=== PATIENT | male | born 1990 | race American Indian/Alaskan Native ===

== ENCOUNTER 2017-04-11 20:15 | Emergency (ER) | payer OTHER ==
--- NOTE | 2017-04-11 21:25 | Emergency Department Report ---
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 denies: fever, chills, myalgias, diaphoresis, rhinorrhea, stiff neck , shortness of breath, abdominal pain, nausea, vomiting, diarrhea, dysuria, rash , confusion, right sweats, weight loss, epistaxis, hoarseness, ear pain Treatments Prior to Arrival: none - Related Data Previous Rx's Medication Instructions Recorded Last Taken Type Amoxicillin [Trimox CAP] 500 mg PO BID #20 capsule 04/11/17 Unknown Rx methylPREDNISolone [Medrol] 4 mg PO DAILY #1 tab.ds.pk 04/11/17 Unknown Rx Allergies Allergy/AdvReac Type Severity Reaction Status Date / Time No Known Allergies Allergy Unverified 04/11/17 20:26 ED Review of Systems ROS: Stated complaint: CHEST PAIN/DAVE Other details as noted in HPI Comment: Unobtainable due to pts medical conditions Constitutional: no symptoms reported, see HPI. denies: chills, diaphoresis, fever, malaise Eyes: as per HPI. denies: eye pain, eye discharge, vision change ENT: as per HPI, throat pain, congestion (NASAL). denies: ear pain, dental pain , hearing loss, epistaxis Respiratory: no symptoms reported, see HPI, cough (WHEN LIES DOWN W TICKLE IN THROAT). denies: orthopnea, shortness of breath, SOB with exertion, SOB at rest , stridor Cardiovascular: as per HPI, chest pain (W COUGH). denies: palpitations, dyspnea on exertion, orthopnea Endocrine: no symptoms reported, see HPI. denies: excessive sweating, flushing , intolerance to cold, intolerance to heat Gastrointestinal: as per HPI. denies: abdominal pain, nausea, vomiting Genitourinary: as per HPI. denies: urgency, dysuria Musculoskeletal: as per HPI. denies: back pain Skin: as per HPI. denies: rash, lesions Neurological: as per HPI, headache (SINUS). denies: weakness, numbness, paresthesias, confusion, abnormal gait, vertigo (DIZZY AT WORK AND THEY MADE HIM COME IN TO ER) Psychiatric: as per HPI. denies: anxiety, depression Hematological/Lymphatic: as per HPI. denies: easy bleeding ED Past Medical Hx - Past Medical History Previous Medical History?: Yes Additional medical history: "kinked ureter" - Surgical History Past Surgical History?: No - Family History Family history: no significant - Social History Smoking Status: Current Every Day Smoker Substance Use Type: Alcohol (rare), Other (denies drugs) - Medications Home Medications: Home Medications Medication Instructions Recorded Confirmed Last Taken Type Amoxicillin [Trimox CAP] 500 mg PO BID #20 capsule 04/11/17 Unknown Rx methylPREDNISolone [Medrol] 4 mg PO DAILY #1 tab.ds.pk 04/11/17 Unknown Rx ED Physical Exam - General Limitations: No Limitations General appearance: alert, in no apparent distress - Head Head exam: Present: atraumatic - Eye Eye exam: Present: PERRL - ENT ENT exam: Present: mucous membranes moist, normal external ear exam. Absent: TM 's normal bilaterally (red b) - Expanded ENT Exam Expanded TM/Canal exam: Erythema: Right TM, Left TM Mouth exam: Absent: drooling, trismus, muffled voice, tongue normal, tongue elevation, laceration Throat exam: Positive: tonsillar erythema, other (max sinus tenderness) - Neck Neck exam: Present: normal inspection, full ROM. Absent: tenderness, meningismus, lymphadenopathy, thyromegaly - Respiratory Respiratory exam: Present: normal lung sounds bilaterally, respiratory distress. Absent: wheezes, rales, rhonchi, stridor, chest wall tenderness, accessory muscle use, decreased breath sounds, prolonged expiratory - Cardiovascular Cardiovascular Exam: Present: regular rate, normal rhythm, normal heart sounds - GI/Abdominal GI/Abdominal exam: Present: soft - Rectal Rectal exam: Present: deferred - Extremities Exam Extremities exam: Present: normal inspection, full ROM. Absent: tenderness, normal capillary refill, pedal edema, joint swelling - Back Exam Back exam: Present: normal inspection, full ROM. Absent: tenderness, CVA tenderness (L) - Neurological Exam Neurological exam: Present: alert, oriented X3, CN II-XII intact, normal gait, reflexes normal - Psychiatric Psychiatric exam: Present: normal affect, normal mood - Skin Skin exam: Present: warm, dry, intact, normal color. Absent: rash ED Course Vital Signs 04/11/17 20:26 Temperature 98.3 F Pulse Rate 80 Respiratory 18 Rate Blood Pressure 104/54 Blood Pressure 104/54 [Left] O2 Sat by Pulse 97 Oximetry ED Medical Decision Making - EKG Data EKG shows normal: sinus rhythm - EKG Data Interpretation: no acute changes - Radiology Data Radiology results: report reviewed, image reviewed - Medical Decision Making non ill appearing cough/sinus mold exposure - Differential Diagnosis urti v allergy Critical care attestation.: If time is entered above; I have spent that time in minutes in the direct care of this critically ill patient, excluding procedure time. ED Disposition Clinical Impression: Sinusitis, Allergic rhinitis, Cough Disposition: - TO HOME OR SELFCARE Is pt being admited?: No Does the pt Need Aspirin: No Condition: Stable Instructions: Sinusitis (ED), Allergic Rhinitis (ED) Additional Instructions: rest fluids motrin or tylenol for pain or fever flonase over the counter twice per day for 5 days med as ordered here today follow up with pcp Prescriptions: Amoxicillin [Trimox CAP] 500 mg PO BID #20 capsule methylPREDNISolone [Medrol] 4 mg PO DAILY #1 tab.ds.pk Referrals: BEATRIZ ESCOBAR MD [Staff Physician] - 3-5 Days Time of Disposition: 21:45
--- NOTE | 2017-04-11 21:34 | XRay Report ---
FINAL REPORT EXAM: XR CHEST 1V AP HISTORY: chest pain COMPARISON: None available. FINDINGS: Frontal view(s) of the chest obtained. Cardiac silhouette within normal limits. No gross consolidation or effusion. No pneumothorax. IMPRESSION: No grossly acute findings.
[2017-04-11 22:33] VITALS: BP 130/67
== END 2017-04-11 22:32 | disposition home or self-care (01) ==
LOC: ED 20:15
DX: J32.9 Chronic sinusitis, unspecified (principal); J30.9 Allergic rhinitis, unspecified; F17.210 Nicotine dependence, cigarettes, uncomplicated
CPT/HCPCS: 71010; 93005; 93010; 99283

== ENCOUNTER 2017-06-03 11:02 | Emergency (ER) | payer OTHER ==
[2017-06-03 11:28] VITALS: BP 99/53
== END 2017-06-03 15:24 | disposition left against medical advice (07) ==
LOC: ED 11:02
DX: Z53.21 Procedure and treatment not carried out due to patient leaving prior to being seen by health care provider (principal)

== ENCOUNTER 2018-05-06 21:15 | Emergency (ER) | payer OTHER ==
[2018-05-06 22:01] LABS: Eosinophils # (Auto) 0.1 K/mm3 (0.0-0.4); Eosinophils % (Auto) 2.5 % (0.0-4.3); Hemoglobin 12.9 gm/dl (11.8-15.2); Lymphocytes % (Auto) 46.1 % (13.4-35.0); Mean Corpuscular HGB Conc 35 % (32-34); Mean Corpuscular Hemoglobin 31 pg (28-32); Mean Corpuscular Volume 89 fl (84-94); Monocytes # (Auto) 0.6 K/mm3 (0.0-0.8); Monocytes % (Auto) 14.3 % (0.0-7.3); Platelet Count 153 K/mm3 (140-440); Red Blood Count 4.15 M/mm3 (3.65-5.03); Red Cell Distribution Width 13.4 % (13.2-15.2)
[2018-05-06 22:24] LABS: BUN/Creatinine Ratio 13; Blood Urea Nitrogen 15 mg/dL (9-20); Calcium 9.1 mg/dL (8.4-10.2); Hemolysis Index 8
[2018-05-06 23:16] LABS: Bilirubin,Urine NEG (Negative); Blood,Urine NEG (Negative); Color,Urine Yellow (Yellow)
[2018-05-07] MEDS ORDERED: ZOFRAN ODT PO ONE (06:18)
[2018-05-07] MEDS ORDERED: TORADOL IM ONE (06:18)
[2018-05-07] MEDS ORDERED: NORCO 5/325 PO ONE (06:18)
--- NOTE | 2018-05-07 06:45 | Emergency Department Report ---
ED Abdominal Pain HPI - General Chief Complaint: Abdominal Pain Stated Complaint: KIDNEY STONE SYMPTOMS Time Seen by Provider: 05/07/18 06:08 Source: patient Mode of arrival: Ambulatory Limitations: No Limitations - History of Present Illness Initial Comments: 27-year-old male with a past medical history of a "kinked ureter" presents to the hospital with right flank pain for the past 5 days. Pain was initially intermittent but now more constant and severe. Pain today was rated 10/10 in intensity and described as feeling something was going to burst. Positive intermittent nausea and vomiting without fever, hematuria, or diarrhea. Patient does not have a primary care doctor or urologist - Related Data Previous Rx's Medication Instructions Recorded Last Taken Type Amoxicillin [Trimox CAP] 500 mg PO BID #20 capsule 04/11/17 Unknown Rx methylPREDNISolone [Medrol] 4 mg PO DAILY #1 tab.ds.pk 04/11/17 Unknown Rx Ibuprofen [Motrin] 600 mg PO Q8H PRN #30 tablet 05/07/18 Unknown Rx Ondansetron [Zofran Odt] 4 mg PO Q8HR PRN #20 tab.rapdis 05/07/18 Unknown Rx traMADol [Ultram 50 MG tab] 50 mg PO Q6HR PRN #20 tablet 05/07/18 Unknown Rx Allergies Allergy/AdvReac Type Severity Reaction Status Date / Time No Known Allergies Allergy Unverified 04/11/17 20:26 ED Review of Systems ROS: Stated complaint: KIDNEY STONE SYMPTOMS Other details as noted in HPI Comment: All other systems reviewed and negative ED Past Medical Hx - Past Medical History Previous Medical History?: Yes Additional medical history: "kinked ureter" - Surgical History Past Surgical History?: No - Social History Smoking Status: Current Every Day Smoker Substance Use Type: Alcohol - Medications Home Medications: Home Medications Medication Instructions Recorded Confirmed Last Taken Type Amoxicillin [Trimox CAP] 500 mg PO BID #20 capsule 04/11/17 Unknown Rx methylPREDNISolone [Medrol] 4 mg PO DAILY #1 tab.ds.pk 04/11/17 Unknown Rx Ibuprofen [Motrin] 600 mg PO Q8H PRN #30 tablet 05/07/18 Unknown Rx Ondansetron [Zofran Odt] 4 mg PO Q8HR PRN #20 tab.rapdis 05/07/18 Unknown Rx traMADol [Ultram 50 MG tab] 50 mg PO Q6HR PRN #20 tablet 05/07/18 Unknown Rx ED Physical Exam - General Limitations: No Limitations - Other Other exam information: General: No limitations, patient is alert in no acute distress Head exam: Atraumatic, normocephalic Eyes exam: Normal appearance ENT: Moist mucous membrane Neck exam: Normal inspection, full range of motion, no meningismus nontender Respiratory exam: Clear to auscultation bilateral, no wheezes, rales, crackles Cardiovascular: Normal rate and rhythm, normal heart sounds Abdomen: Soft, nondistended, right flank tenderness, with normal bowel sounds, no rebound, or guarding Extremity: Full range of motion normal inspection no deformity Back: Normal Inspection, full range of motion Neurologic: Alert, oriented x3, cranial nerves intact, no motor or sensory deficit Psychiatric: normal affect, normal mood Skin: Warm, dry, intact ED Course Vital Signs 05/06/18 05/07/18 21:39 08:20 Temperature 98.5 F 98.3 F Pulse Rate 55 L 63 Respiratory 17 15 Rate Blood Pressure 138/55 Blood Pressure 119/81 [Left] O2 Sat by Pulse 99 100 Oximetry - Reevaluation(s) Reevaluation #1: 05/07/18 06:44 Hope, Toradol, Zofran ordered - Consultations Consultation #1: 05/07/18 09:17 Dr Yip Urologist at [place] consulted page. Recommends outpatient follow up. Request the patient calls Siomara at [phone] 05/07/18 09:37 Dr Milton returned call at this time. Pt january f/u in office on 05/10 ED Medical Decision Making - Lab Data Result diagrams: 05/06/18 21:50 05/06/18 21:50 Lab Results 05/06/18 05/06/18 05/06/18 Range/Units 21:50 21:50 22:24 WBC 4.4 L (4.5-11.0) K/mm3 RBC 4.15 (3.65-5.03) M/mm3 Hgb 12.9 (11.8-15.2) gm/dl Hct 37.0 (35.5-45.6) % MCV 89 (84-94) fl MCH 31 (28-32) pg MCHC 35 H (32-34) % RDW 13.4 (13.2-15.2) % Plt Count 153 (140-440) K/mm3 Lymph % (Auto) 46.1 H (13.4-35.0) % [place] % (Auto) 14.3 H (0.0-7.3) % Eos % (Auto) 2.5 (0.0-4.3) % Baso % (Auto) 1.0 (0.0-1.8) % Lymph # 2.0 (1.2-5.4) K/mm3 [place] # 0.6 (0.0-0.8) K/mm3 Eos # 0.1 (0.0-0.4) K/mm3 Baso # 0.0 (0.0-0.1) K/mm3 Seg Neutrophils % 36.1 L (40.0-70.0) % Seg Neutrophils # 1.6 L (1.8-7.7) K/mm3 Sodium 137 (137-145) mmol/L Potassium 4.0 (3.6-5.0) mmol/L Chloride 100.0 (98-107) mmol/L Carbon Dioxide 28 (22-30) mmol/L Anion Gap 13 mmol/L BUN 15 (9-20) mg/dL Creatinine 1.2 (0.8-1.5) mg/dL Estimated GFR > 60 ml/min BUN/Creatinine Ratio 13 % Glucose 80 (75-100) mg/dL Calcium 9.1 (8.4-10.2) mg/dL Urine Color Yellow (Yellow) Urine Turbidity Clear (Clear) Urine pH 7.0 (5.0-7.0) Ur Specific [place] 1.010 (1.003-1.030) Urine Protein 30 mg/dl (Negative) mg/dL Urine Glucose (UA) 50 (Negative) mg/dL Urine Ketones Neg (Negative) mg/dL Urine Blood Neg (Negative) Urine Nitrite Neg (Negative) Urine Bilirubin Neg (Negative) Urine Urobilinogen 4.0 (<2.0) mg/dL Ur Leukocyte Esterase Neg (Negative) Urine WBC (Auto) 1.0 (0.0-6.0) /HPF Urine RBC (Auto) 2.0 (0.0-6.0) /HPF U Epithel Cells (Auto) < 1.0 (0-13.0) /HPF - Radiology Data Radiology results: report reviewed FINAL REPORT EXAM: CT ABDOMEN PELVIS WO CON HISTORY: r flank pain TECHNIQUE: CT images obtained through the Abdomen and Pelvis without contrast. Transaxial,coronal and sagittal reformats are provided. PRIORS: None. FINDINGS: Imaged intrathoracic contents are unremarkable. There is severe right hydronephrosis. The right ureter distal to the ureteropelvic junction is not well seen but is not enlarged. No stones in either the right or left collecting system. No left-sided hydroureteronephrosis. No stones in the urinary bladder. The liver, gallbladder, pancreas, spleen, and adrenal glands demonstrate a normal noncontrast appearance. Hollow enteric organs are normal in course and caliber. Appendix is normal. No intra-abdominal free air/fluid or lymphadenopathy. Aorta is normal in course and caliber. Superficial soft tissues are unremarkable. No acute or aggressive appearing skeletal findings. IMPRESSION: Severe right hydronephrosis due to apparent ureteropelvic junction obstruction. No nephrolithiasis or ureteral dilatation. Consider urology consultation and CT urogram as warranted. 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 ED Disposition Clinical Impression: Hydronephrosis, right, Right flank pain Disposition: DC-01 TO HOME OR SELFCARE Is pt being admited?: No Does the pt Need Aspirin: No Condition: Stable Instructions: Hydronephrosis (ED) Additional Instructions: Take the medication as prescribed. Follow up with your doctor and specialist provided. Return if symptoms worsen as indicated by your discharge instructions Prescriptions: Ibuprofen [Motrin] 600 mg PO Q8H PRN #30 tablet PRN Reason: Pain Ondansetron [Zofran Odt] 4 mg PO Q8HR PRN #20 tab.rapdis PRN Reason: Nausea And Vomiting traMADol [Ultram 50 MG tab] 50 mg PO Q6HR PRN #20 tablet PRN Reason: Pain Referrals: KONG MORGAN MD [Staff Physician] - 2-3 Days (Primary care doctor) [facility] [Provider Group] - 2-3 Days (primary care clinic) Dr Yip, urology [Other] - 3-5 Days (Call Siomara at [phone] to make appointment [address] Yip urologist at [facility]) DEVIN MILTON MD [Staff Physician] - 2-3 Days (office is open on Wednesday, this is a local urology group) Time of Disposition: 09:37
--- NOTE | 2018-05-07 06:58 | Cat Scan Report ---
FINAL REPORT EXAM: CT ABDOMEN PELVIS WO CON HISTORY: r flank pain TECHNIQUE: CT images obtained through the Abdomen and Pelvis without contrast. Transaxial,coronal and sagittal reformats are provided. PRIORS: None. FINDINGS: Imaged intrathoracic contents are unremarkable. There is severe right hydronephrosis. The right ureter distal to the ureteropelvic junction is not well seen but is not enlarged. No stones in either the right or left collecting system. No left-sided hydroureteronephrosis. No stones in the urinary bladder. The liver, gallbladder, pancreas, spleen, and adrenal glands demonstrate a normal noncontrast appearance. Hollow enteric organs are normal in course and caliber. Appendix is normal. No intra-abdominal free air/fluid or lymphadenopathy. Aorta is normal in course and caliber. Superficial soft tissues are unremarkable. No acute or aggressive appearing skeletal findings. IMPRESSION: Severe right hydronephrosis due to apparent ureteropelvic junction obstruction. No nephrolithiasis or ureteral dilatation. Consider urology consultation and CT urogram as warranted.
[2018-05-07 08:22] VITALS: BP 119/81
== END 2018-05-07 10:39 | disposition home or self-care (01) ==
LOC: ED 21:15
DX: N13.30 Unspecified hydronephrosis (principal); F17.200 Nicotine dependence, unspecified, uncomplicated
CPT/HCPCS: 36415; 74176; 80048; 81001; 85025; 96372; 99284; J1885; Q0162

== ENCOUNTER 2021-04-25 13:42 | Outpatient (CLI) | payer BC ==
--- NOTE | 2021-04-25 14:34 | XRay Report ---
ABDOMEN 1 VIEW(S) INDICATION / CLINICAL INFORMATION: ABDOMEN PAIN,CONSTIPATION. COMPARISON: None available. FINDINGS: TUBES / LINES: None. BOWEL GAS PATTERN: No significant abnormality. Normal fecal matter throughout the colon. FREE AIR / EXTRALUMINAL GAS: None seen. ADDITIONAL FINDINGS: No significant additional findings. IMPRESSION: No significant abnormality. Signer Name: Ananth Brown Jr, MD Signed: 04/25/2021 2:30 PM Workstation Name: [id number]
--- NOTE | 2021-04-25 17:42 | Ultrasound Report ---
ULTRASOUND RENAL INDICATION / CLINICAL INFORMATION: HYDRONEPHROSIS. COMPARISON: CT dated 05/07/2018 FINDINGS: RIGHT KIDNEY: Length = 13.2 cm. - Echogenicity: Normal. - Cortical Thickness: Normal. - Hydronephrosis: Moderate to severe - Cyst / Mass: None. - Stones: None seen. LEFT KIDNEY: Length = 11.8 cm. - Echogenicity: Normal. - Cortical Thickness: Normal. - Hydronephrosis: None. - Cyst / Mass: None. - Stones: None seen. URINARY BLADDER: No significant abnormality. FREE FLUID: None. ADDITIONAL FINDINGS: None. IMPRESSION: 1. Moderate to severe right hydronephrosis. Signer Name: Geovanni Lennon DO Signed: 04/25/2021 5:37 PM Workstation Name: [id number]
== END 2021-04-25 13:43 | disposition home or self-care (01) ==
LOC: US 13:42
PROVIDERS: ATTEND Internal Medicine Nephrology
DX: N13.2 Hydronephrosis with renal and ureteral calculous obstruction (principal); R39.11 Hesitancy of micturition; N13.30 Unspecified hydronephrosis
CPT/HCPCS: 74018; 76770